=== PATIENT | female | born 1995 | race Caucasian/White ===

== ENCOUNTER 2022-11-26 08:00 | Outpatient (CLI) | payer OTHER ==
[2022-11-26 16:27] LABS: BILIRUBIN,URINE NEGATIVE (NEGATIVE); GLUCOSE, URINE (UA) NEGATIVE (NEGATIVE); KETONES,URINE (UA) NEGATIVE (NEGATIVE); LEUKOCYTE ESTERASE, URINE SMALL (NEGATIVE); NITRITE,URINE NEGATIVE (NEGATIVE); OCCULT BLOOD,URINE NEGATIVE (NEGATIVE); PH,URINE 6.5 PH (5.0-7.5); PROTEIN,URINE NEGATIVE (NEGATIVE); UROBILINOGEN,URINE 0.2 (NORMAL) E.U./dL (NORMAL)
[2022-11-26 16:43] LABS: CLARITY,URINE CLEAR (CLEAR)
[2022-11-26 16:44] LABS: BACTERIA,URINE Moderate /HPF (None Seen); RBC,URINE None Seen /HPF (0-5); SQUAMOUS EPITHELIAL CELL,UR MOD Squamous (<= Few)
== END 2022-11-26 23:59 | disposition home or self-care (01) ==
LOC: LAB.WC 08:00
PROVIDERS: ATTEND Obstetrics & Gynecology
DX: Z34.80 Encounter for supervision of other normal pregnancy, unspecified trimester (principal)
CPT/HCPCS: 81001; 87086

== ENCOUNTER 2022-12-28 08:34 | Outpatient (CLI) | payer OTHER ==
[2022-12-28 10:14] LABS: HCT - HEMATOCRIT 39.9 % (37.0-47.0); HGB - HEMOGLOBIN 13.5 g/dL (12.0-16.0); MEAN CORPUSCULAR HEMOGLOBIN 29.8 pg (27.0-31.0); MEAN CORPUSCULAR HGB CONC 33.8 g/dL (32.0-36.0); MEAN CORPUSCULAR VOLUME 88.1 fL (81.0-99.0); MEAN PLATELET VOLUME 9.1 fL (7.9-10.8); RED BLOOD COUNT 4.53 10^6/uL (4.20-5.40); RED CELL DISTRIBUTION WIDTH 11.9 % (12.0-15.0); WHITE BLOOD COUNT 6.7 x10^3/uL (4.8-10.8)
--- NOTE | 2022-12-28 17:17 | Ultrasound Report ---
PROCEDURE: OB First Trimester w/TV INDICATIONS: POSITIVE TEST OUTSIDE/PRIOR DATING DATA: Last menstrual period (LMP): 10/16/2022. LMP-based estimated date of delivery (DIANA): 07/23/2023. First dating scan (date and location): 12/28/2022, Shayna Metz. Estimated date of delivery (DIANA) from first dating scan: 08/19/2023. TECHNIQUE: Real-time scanning was performed of the fetus and maternal pelvic organs, with image documentation. Endovaginal scanning was also performed to better visualize the fetus and maternal ovaries. COMPARISON: None. FINDINGS: Intrauterine gestational sac present. Embryo: There is a 1.27 cm gestational sac which correlates with a gestational age by mean gestationa l sac diameter of 6 weeks, 1 day. A probable pole is visualized which measures 6 m in length fo r a gestational age of 6 weeks, 4 days. Heart rate: heart rate detected. Other: No perigestational fluid collection. Measurement variability in dating: +/- 4 weeks by LMP, +/- 7 days by mean sac diameter (use before 6 weeks gestation if crown-rump length not able to be measured), +/- 5 days by crown-rump length (6-12 weeks gestation). Maternal organs: Ovaries appear within normal limits. There is a left corpus luteal cyst. IMPRESSION: 1. Probable pole visualized with a calculated gestational age of 6 weeks 4 days which correspon ds with the mean gestational sac diameter of 6 weeks, 1 day. Findings suggest early dates, although i ntrauterine demise cannot be excluded. Close clinical and sonographic surveillance recommended. Reviewed by: Marcia Patrick MD on 12/28/2022 5:16 PM PDT Approved by: Marcia Patrick MD on 12/28/2022 5:16 PM PDT Station ID: [id number]
== END 2022-12-28 08:35 | disposition home or self-care (01) ==
LOC: DI 08:34
PROVIDERS: ATTEND Obstetrics & Gynecology
DX: O46.8X1 Other antepartum hemorrhage, first trimester (principal); Z3A.01 Less than 8 weeks gestation of pregnancy
CPT/HCPCS: 36415; 84702; 85027; 86850; 86900; 86901

== ENCOUNTER 2022-12-29 08:00 | Outpatient (CLI) | payer OTHER ==
[2022-12-29 20:22] LABS: CHLAMYDIA TRACHOMATIS DNA NEGATIVE (NEGATIVE); NEISSERIA GONORRHOEAE DNA NEGATIVE (NEGATIVE); TRICHOMONAS VAGINALIS DNA NEGATIVE (NEGATIVE)
== END 2022-12-29 23:59 | disposition home or self-care (01) ==
LOC: LAB.WC 08:00
PROVIDERS: ATTEND Nurse Practitioner
DX: Z11.3 Encounter for screening for infections with a predominantly sexual mode of transmission (principal)
CPT/HCPCS: 87491; 87591; 87661

== ENCOUNTER 2023-01-01 10:29 | Outpatient (CLI) | payer OTHER | END 2023-01-01 10:30 | disposition home or self-care (01) | LOC: LAB 10:29 | PROVIDERS: ATTEND Nurse Practitioner | DX: O46.8X1 Other antepartum hemorrhage, first trimester (principal) | CPT/HCPCS: 36415; 84702; 86850 ==

== ENCOUNTER 2023-01-14 09:36 | Outpatient (CLI) | payer OTHER | END 2023-01-14 09:37 | disposition home or self-care (01) | LOC: LAB 09:36 | PROVIDERS: ATTEND Nurse Practitioner | DX: O46.8X1 Other antepartum hemorrhage, first trimester (principal) | CPT/HCPCS: 36415; 84702 ==

== ENCOUNTER 2023-06-04 10:24 | Outpatient (CLI) | payer OTHER, MEDICAID | END 2023-06-04 10:25 | disposition home or self-care (01) | LOC: LAB 10:24 | PROVIDERS: ATTEND Nurse Practitioner | DX: Z32.01 Encounter for pregnancy test, result positive (principal) | CPT/HCPCS: 36415; 84702 ==

== ENCOUNTER 2023-06-07 10:17 | Outpatient (CLI) | payer OTHER, MEDICAID | END 2023-06-07 10:18 | disposition home or self-care (01) | LOC: LAB 10:17 | PROVIDERS: ATTEND Nurse Practitioner | DX: Z32.01 Encounter for pregnancy test, result positive (principal) | CPT/HCPCS: 36415; 84702 ==

== ENCOUNTER 2023-07-25 08:00 | Outpatient (CLI) | payer OTHER, MEDICAID ==
[2023-07-25 16:38] LABS: BILIRUBIN,URINE NEGATIVE (NEGATIVE); GLUCOSE, URINE (UA) NEGATIVE (NEGATIVE); KETONES,URINE (UA) NEGATIVE (NEGATIVE); LEUKOCYTE ESTERASE, URINE TRACE (NEGATIVE); NITRITE,URINE NEGATIVE (NEGATIVE); OCCULT BLOOD,URINE NEGATIVE (NEGATIVE); PH,URINE 6.5 PH (5.0-7.5); PROTEIN,URINE NEGATIVE (NEGATIVE); UROBILINOGEN,URINE 0.2 (NORMAL) E.U./dL (NORMAL)
[2023-07-25 17:07] LABS: BACTERIA,URINE Many /HPF (None Seen); CLARITY,URINE HAZY (CLEAR); RBC,URINE None Seen /HPF (0-5); SQUAMOUS EPITHELIAL CELL,UR MANY Squamous (<= Few)
== END 2023-07-25 23:59 | disposition home or self-care (01) ==
LOC: LAB.WC 08:00
PROVIDERS: ATTEND Obstetrics & Gynecology
DX: Z34.90 Encounter for supervision of normal pregnancy, unspecified, unspecified trimester (principal)
CPT/HCPCS: 81001; 87086

== ENCOUNTER 2023-08-04 10:58 | Outpatient (CLI) | payer OTHER, MEDICAID ==
--- NOTE | 2023-08-04 12:10 | Ultrasound Report ---
PROCEDURE: OB 1st Trimester INDICATIONS: POSITIVE TEST OUTSIDE/PRIOR DATING DATA: Last menstrual period (LMP): 06/09/2023. LMP-based estimated date of delivery (DIANA): 03/15/2024. First dating scan (date and location): 08/04/2023. Estimated date of delivery (DIANA) from first dating scan: 03/16/2024. TECHNIQUE: Real-time scanning was performed of the fetus and maternal pelvic organs, with image documentation. COMPARISON: None. FINDINGS: Intrauterine gestational sac present. Embryo: Present, measuring 1.5 cm, corresponding to 7 weeks 6 days. Heart rate: 162 bpm. Other: No perigestational fluid collection. Measurement variability in dating: +/- 4 weeks by LMP, +/- 7 days by mean sac diameter (use before 6 weeks gestation if crown-rump length not able to be measured), +/- 5 days by crown-rump length (6-12 weeks gestation). Maternal organs: Ovaries demonstrate a right-sided corpus luteum. IMPRESSION: Single living intrauterine at 7 weeks 6 days, DIANA of 03/16/2024. Reviewed by: Dean Bazan MD on 08/04/2023 12:08 PM PDT Approved by: Dean Bazan MD on 08/04/2023 12:08 PM PDT Station ID: [id number]
== END 2023-08-04 10:59 | disposition home or self-care (01) ==
LOC: DI 10:58
PROVIDERS: ATTEND Obstetrics & Gynecology
DX: Z34.91 Encounter for supervision of normal pregnancy, unspecified, first trimester (principal)

== ENCOUNTER 2023-11-01 16:36 | Outpatient (CLI) | payer OTHER, MEDICAID ==
--- NOTE | 2023-11-02 09:04 | Ultrasound Report ---
PROCEDURE: OB Anatomy Scan INDICATIONS: ARTERIAL FIBROMUSCULAR DYSPLASIA, HYPOTHYRODISM OUTSIDE/PRIOR DATING DATA: Last menstrual period (LMP): 06/09/2023. LMP-based estimated date of delivery (DIANA): 03/15/2024. First dating scan (date and location): 08/04/2023. Estimated date of delivery (DIANA) from first dating scan: 03/16/2024. The below data below was generated using the ultrasound DIANA of 03/16/2024 TECHNIQUE: Real-time scanning was performed of the fetus, with image documentation and biometric measurements. Endovaginal scanning: Not performed. COMPARISON: 08/04/2023 FINDINGS: General: A single living intrauterine gestation is present. Presentation: Variable Placenta: Placental position is anterior, without previa. Amniotic fluid index: 12.1 cm, 23.4 percentile for gestational age. heart rate: 147 beats per minute. Maternal cervical canal: 4.17 cm long; normal length is 2.5 cm or more. biometrics: Biparietal diameter: 4.8 cm, 20 weeks 4 days, 46.9 percentile Head circumference: 18.44 cm, 20 weeks 6 days, 51.9 percentile Abdominal circumference: 16.06 cm, 21 weeks 1 day, 63.6 percentile Femur length: 3.39 cm, 20 weeks 5 days, 44.0 percentile Estimated gestational age from initial scan: 20 weeks 4 days Composite gestational age from present scan: 21 weeks 0 days Estimated weight and percentile: 384.9 g, 63.6 percentile Measurement variability in biometric dating: +/- 10 days from 12-20 weeks gestation, +/- 2 weeks from 20-30 weeks gestation, +/- 3 weeks at 30 weeks gestation or later. Anatomic survey: Neuro: Ventricles are normal at less than 10 mm. Cisterna magna is normal at 3-11 mm. Cerebellum i s normal in size and morphology. Nuchal skin fold: Normal at less than 6 mm between 14 and 20 weeks gestational age. Face: Not well visualized due to positioning. Spine: No evidence for spina bifida. Heart: 4-chambered heart is present, with normal ventricular outflow tracts. Diaphragm: Diaphragm is intact. Stomach: Left-sided stomach is present. Kidneys: Not well visualized due to positioning. Cord: 3 vessel cord has orthotopic insertion. Bladder: Normal in size. Extremities: All 4 extremities are visualized. IMPRESSION: Single living intrauterine at 20 weeks 4 days, DIANA of 03/16/2024. Estimated weight of 384.9 g, 63.6 percentile. Face and kidneys not well visualized. Short-term follow-up should be considered. Otherwise, normal fe cricket anatomy survey. Reviewed by: Dean Bazan MD on 11/02/2023 9:03 AM PDT Approved by: Dean Bazan MD on 11/02/2023 9:03 AM PDT Station ID: [id number]
== END 2023-11-01 16:37 | disposition home or self-care (01) ==
LOC: DI 16:36
PROVIDERS: ATTEND Obstetrics & Gynecology
DX: Z34.92 Encounter for supervision of normal pregnancy, unspecified, second trimester (principal)

== ENCOUNTER 2023-11-14 17:10 | Outpatient (CLI) | payer OTHER, MEDICAID ==
--- NOTE | 2023-11-15 16:59 | Ultrasound Report ---
PROCEDURE: OB Follow up INDICATIONS: SUPERVISION OF NORMAL , COMPLETE FAS OUTSIDE/PRIOR DATING DATA: Last menstrual period (LMP): 06/09/2023. LMP-based estimated date of delivery (DIANA): 03/15/2024. First dating scan (date and location): 08/04/2023. Estimated date of delivery (DIANA) from first dating scan: 03/16/2024. The below data below was generated using the ultrasound DIANA of 03/16/2024 TECHNIQUE: Real-time scanning was performed of the fetus, with image documentation. Endovaginal scanning: Not performed. COMPARISON: OB ultrasound 11/01/2023 FINDINGS: General: A single living intrauterine gestation is present. Presentation: Vertex Placenta: Placental position is anterior, without previa. Amniotic fluid index: 17.4 cm, within normal limits for gestational age. Largest pocket 5.7 cm heart rate: 148 beats per minute. Estimated gestational age from initial scan: 22 weeks 3 days Other: Facial profile is within normal limits. Orbits are unremarkable. Nose and lips are within norm al limits. Kidneys are within normal limits. No pelviectasis. Maternal right ovary measures 2.4 cm. IMPRESSION: 1. Ivey living intrauterine at 22 weeks 3 days based on prior ultrasound. 2. Normal placenta and amniotic fluid. 3. profile, orbits, nose and lips and kidneys appear normal. Reviewed by: Gibran Rosa MD on 11/15/2023 4:58 PM PDT Approved by: Gibran Rosa MD on 11/15/2023 4:58 PM PDT Station ID: [id number]
== END 2023-11-14 17:11 | disposition home or self-care (01) ==
LOC: DI 17:10
PROVIDERS: ATTEND Obstetrics & Gynecology
DX: Z34.82 Encounter for supervision of other normal pregnancy, second trimester (principal)

== ENCOUNTER 2023-12-23 09:35 | Outpatient (CLI) | payer OTHER, MEDICAID ==
[2023-12-23 10:59] LABS: HCT - HEMATOCRIT 36.2 % (37.0-47.0); MEAN CORPUSCULAR HEMOGLOBIN 30.2 pg (27.0-31.0); MEAN CORPUSCULAR HGB CONC 33.1 g/dL (32.0-36.0); MEAN PLATELET VOLUME 9.9 fL (7.9-10.8); RED BLOOD COUNT 3.98 10^6/uL (4.20-5.40); RED CELL DISTRIBUTION WIDTH 12.5 % (12.0-15.0); WHITE BLOOD COUNT 9.4 x10^3/uL (4.8-10.8)
[2023-12-24 09:09] LABS: RPR Non Reactive (Non Reactive)
== END 2023-12-23 09:36 | disposition home or self-care (01) ==
LOC: LAB 09:35
PROVIDERS: ATTEND Obstetrics & Gynecology
DX: Z34.80 Encounter for supervision of other normal pregnancy, unspecified trimester (principal)
CPT/HCPCS: 36415; 82950; 85027; 86592

== ENCOUNTER 2024-03-08 05:32 | Inpatient (IN) ==
[2024-03-08] MEDS: LACTATED RINGERS 1,000 ML IV SCH ×2 (06:30→09:56)
[2024-03-08 06:33] LABS: BASOPHILS % (AUTO) 0.4 %; EOSINOPHILS # (AUTO) 0.1 10^3/uL (0.0-0.7); EOSINOPHILS % (AUTO) 1.2 %; HCT - HEMATOCRIT 35.5 % (37.0-47.0); HGB - HEMOGLOBIN 11.8 g/dL (12.0-16.0); LYMPHOCYTES # (AUTO) 2.2 10^3/uL (1.5-3.5); LYMPHOCYTES % (AUTO) 22.6 %; MEAN CORPUSCULAR HEMOGLOBIN 29.6 pg (27.0-31.0); MEAN CORPUSCULAR HGB CONC 33.2 g/dL (32.0-36.0); MEAN PLATELET VOLUME 11.6 fL (7.9-10.8); MONOCYTES # (AUTO) 0.7 10^3/uL (0.0-1.0); MONOCYTES % (AUTO) 7.1 %; NEUTROPHILS # (AUTO) 6.4 10^3/uL (1.5-6.6); NEUTROPHILS % (AUTO) 67.3 %; PLT - PLATELET COUNT 214 10^3/uL (130-450); RED BLOOD COUNT 3.99 10^6/uL (4.20-5.40); RED CELL DISTRIBUTION WIDTH 12.9 % (12.0-15.0); WHITE BLOOD COUNT 9.5 x10^3/uL (4.8-10.8)
[2024-03-08] MEDS ORDERED: PHENYLEPHRINE 10 MG/ML VIAL ONE (07:09)
[2024-03-08] MEDS: ACETAMINOPHEN 500 MG TABLET PO ONE (07:12)
[2024-03-08] MEDS: CITRIC ACID/SODIUM CITRATE 15 ML UDC PO ONE (07:13)
--- NOTE | 2024-03-08 07:15 | ANESTHESIA PROCEDURE NOTE ---
Pre-Anesthesia VS, & Labs Diagnosis Surgical Diagnosis:: repeat c/s Procedure Procedure: c/s Vitals Vital Signs: Temp Resp 36.7 C 16 03/08/24 06:36 03/08/24 06:36 Height (in): 5 ft 8 in Weight (kg): 87.543 kg Body Mass Index: 29.3 BMI Classification: Overweight NPO NPO: >8 hours Is Patient ?: Yes Estimated Due Date:: 03/08/24 Lab Results Current Lab Results: Laboratory Tests 03/08/24 06:30: WBC 9.5, RBC 3.99 L, Hgb 11.8 L, Hct 35.5 L, MCV 89.0, MCH 29.6, MCHC 33.2, RDW 12.9, Plt Count 214, MPV 11.6 H, Neut # (Auto) 6.4, Lymph # (Auto) 2.2, Divide # (Auto) 0.7, Eos # (Auto) 0.1, Baso # (Auto) 0.0, Absolute Nucleated RBC 0.00, Nucleated RBC % 0.0 Lab results reviewed: Yes 03/08/24 06:30 Meds/Allgy Home Medications Ambulatory Orders Medication Instructions Recorded Confirmed aspirin 81 mg tablet,delayed 81 mg PO QDAY 01/06/24 02/24/24 release (Adult Aspirin Regimen) omeprazole 20 mg capsule,delayed 20 mg PO QDAY 01/06/24 02/24/24 release vit no.133-ferrous tab PO 01/06/24 02/24/24 fumarate 28 mg-folic acid 800 mcg tablet () sertraline 100 mg tablet (Zoloft) 100 mg PO QDAY 01/06/24 02/24/24 Allergies Allergies Allergy/AdvReac Type Severity Reaction Status Date / Time No Known Drug Allergies Allergy Verified 02/16/24 09:51 [facility] Surgical History Surgical History H/O: 10/03/2021 Family History Family History (Updated 01/06/24 @ 11:39 by Suzi Galicia MA) Paternal grandfather Diabetes Mother Depressed Father Depressed Aunt Depressed Maternal grandmother Breast cancer Brother Seizures Social History Social History Smoking Status: Never smoker Do you dip or chew tobacco?: No Anesthesia Exam (Expanded) Exam General: Alert and No acute distress Dental: WNL Mouth Openin Fingerbreadth Neck Mobility: Normal Mallampati classification: II Thyromental Distance: 4-6 cm Respiratory: Lungs clear Cardiovascular: Regular rate Plan Plan Anesthesia Type: Spinal and Transverse Abdominis Plane (TAP) Block Consent for Procedure(s) Verified and Reviewed: Yes Code Status: Attempt Resuscitation ASA Classification ASA classification: 2-Mild systemic disease Is this case an emergency?: No
[2024-03-08] MEDS ORDERED: ATROPINE ABBOJECT 1 MG/10 ML SYRINGE IVP PRN (07:17)
[2024-03-08] MEDS ORDERED: METOCLOPRAMIDE 10 MG/2 ML VIAL IVP PRN (07:17)
[2024-03-08] MEDS ORDERED: HYDROmorphone 0.5 MG/0.5 ML SYRINGE IVP PRN (07:17)
[2024-03-08] MEDS ORDERED: MORPHINE 2 MG/ML CARPUJECT IVP PRN (07:17)
[2024-03-08] MEDS ORDERED: NALOXONE 0.4 MG/ML VIAL IVP PRN ×2 (07:17→09:16)
[2024-03-08] MEDS ORDERED: ONDANSETRON 4 MG/2 ML VIAL IVP PRN (07:17)
[2024-03-08] MEDS ORDERED: ePHEDrine 50 MG/ML VIAL IVP PRN (07:17)
[2024-03-08] MEDS ORDERED: fentaNYL 100 MCG/2 ML VIAL IVP PRN (07:17)
--- NOTE | 2024-03-08 07:17 | HISTORY & PHYSICAL EXAMINATION ---
Admit History Smoking Status: Never smoker Other Maternal History Other Maternal History: HPI: Moon is a 28 yo at 39w0d who is admitted for scheduled delivery. She is feeling well today. Reports rare contractions. No LOF, VB. + FM. monitoring form, copied from record: Previous low-transverse section. LMP: 06/09/2023 DIANA by LMP: 03/15/2024 Initial US Date 08/04/2023, US Age 7 weeks 6 days, DIANA by ultrasound: 03/16/2024 Final DIANA: 03/15/2024 by LMP consistent with 7-week ultrasound Problems: - Previous section, induced at 37 weeks and only got to 5 cm - desires rCS - Older son, Elan, a cleft lip - , Ruben, a carrier of SMA, Moon completed carrier screening (negative) baby boy Pre- Weight:186.8 BMI:28.51 Blood type: A+ Antibody: Negative CBC:H/H 12.6/36.3 plt 251 RUB:immune VZV:Immune HBsAg: Negative HepC:NR RPR/AB-EIA: NR HIV: NR PAP:08/19/2023-NILM GC/CT:Negative HSV: denies in self and partner Genetic testing: NIPT- Negative AFP- ordered 09/14 Covid: 12/22 Flu: 2022, 12/23/23 RSV- 02/15 FAS: 11/01/2023 Placenta: Anterior Cord: 3vc FELIZ: 12.1CM EFW: 384.9G; 63.6%tile 50gm OGCT:83 3HR GTT: TDAP: 12/22 Breast Pump: declines, has pump RPR: 12/22 Negative Antibody screen: 3rd trimester H/H 36.2/12.0 PLT 218 3rd trimester HIV GBS: 02/16/2024- Negaive Delivery plan: MOD: desires rCS, declines sterilization. Contraception: PILL, getting vasectomy. No LARC PE: Vitals signs reviewed in [facility] Gen: NAD CV: RRR Resp: non labored respirations Chest: non labored respirations Abd: gravid, non tender. Ext: no LE edema NST: reactive Labs: reviewed A/P: 28 yo with history of delivery. Plan to proceed with repeat delivery. We reviewed risks of delivery including pain, bleeding (possibly requiring blood transfusion or as a life-saving measure hysterectomy), infection, damage to nearby structures including bowel/bladder, longer recovery time , increased risk for DVT, risk of /injury to mom or baby. Consent was signed. Nawaf Christopher MD HPI Current : Current EDU 03/08/24 Para 1 Vital Signs Temperature 98.1 F 03/08/24 06:36 Respiratory Rate 16 03/08/24 06:36 Temperature 98.1 F 03/08/24 06:36 Respiratory Rate 16 03/08/24 06:36 NST Procedure NST Procedure: NST Procedure Start Date 03/08/24 Start Time 05:46 Stop Time 06:09 Vibroacoustic Stimulation Used No Patient States Movement Yes Meds/Allgy Home Medications Ambulatory Orders Medication Instructions Recorded Confirmed aspirin 81 mg tablet,delayed 81 mg PO QDAY 01/06/24 02/24/24 release (Adult Aspirin Regimen) omeprazole 20 mg capsule,delayed 20 mg PO QDAY 01/06/24 02/24/24 release vit no.133-ferrous tab PO 01/06/24 02/24/24 fumarate 28 mg-folic acid 800 mcg tablet () sertraline 100 mg tablet (Zoloft) 100 mg PO QDAY 01/06/24 02/24/24 Allergies Allergies Allergy/AdvReac Type Severity Reaction Status Date / Time No Known Drug Allergies Allergy Verified 02/16/24 09:51 [facility] Surgical History Surgical History H/O: 10/03/2021 Family History Family History (Updated 01/06/24 @ 11:39 by Suzi Galicia MA) Paternal grandfather Diabetes Mother Depressed Father Depressed Aunt Depressed Maternal grandmother Breast cancer Brother Seizures Social History Social History Smoking Status: Never smoker Do you dip or chew tobacco?: No Physical Abdominal Exam Vital Signs: Temp Resp 98.1 F 16 03/08/24 06:36 03/08/24 06:36 Plan for Labor Plan For Labor I expect patient to be DC'd or transferred within 96 hours.: Yes Conclusion/Plan Lab Results Lab results reviewed: Yes 03/08/24 06:30
[2024-03-08] MEDS ORDERED: ePHEDrine 50 MG/ML VIAL IVP ONE (07:26)
[2024-03-08] MEDS ORDERED: OXYTOCIN/SODIUM CHLORIDE 500 ML IV ONE (07:28)
[2024-03-08] MEDS ORDERED: OXYTOCIN 10 UNIT/ML VIAL ONE (07:28)
[2024-03-08] MEDS: ACETAMINOPHEN 500 MG TABLET PO SCH (07:30)
[2024-03-08] MEDS ORDERED: ONDANSETRON 4 MG/2 ML VIAL ONE (08:01)
[2024-03-08] MEDS ORDERED: MIDAZOLAM 2 MG/2 ML VIAL ONE (08:32)
[2024-03-08] MEDS ORDERED: ROPIVACAINE 0.5% PF 20 ML VIAL ONE (08:54)
[2024-03-08] MEDS ORDERED: SODIUM CHLORIDE 0.9% 10 ML VIAL IVP ONE (08:54)
[2024-03-08] MEDS ORDERED: PROPOFOL 200 MG/20 ML VIAL IVP ONE (08:55)
[2024-03-08] MEDS ORDERED: KETOROLAC 30 MG/ML VIAL ONE (09:11)
[2024-03-08] MEDS ORDERED: DEXAMETHASONE 4 MG/ML VIAL ONE (09:15)
[2024-03-08] MEDS ORDERED: OXYTOCIN/SODIUM CHLORIDE 500 ML IV PRN (09:16)
[2024-03-08] MEDS ORDERED: HYDROCORTISONE 1% CREAM 28 GM TUBE TOP PRN (09:16)
[2024-03-08] MEDS ORDERED: WITCH HAZEL/GLYCERIN 1 PAD TOP PRN (09:16)
[2024-03-08] MEDS ORDERED: oxyCODONE 5 MG TABLET PO PRN (09:16)
[2024-03-08] MEDS ORDERED: MAGNESIUM HYDROXIDE 2,400 MG/30 ML UDC PO PRN (09:16)
[2024-03-08] MEDS ORDERED: NIFEdipine 10 MG CAPSULE PO PRN (09:16)
[2024-03-08] MEDS ORDERED: SIMETHICONE CHEW 80 MG TABLET PO PRN (09:16)
[2024-03-08] MEDS ORDERED: LABETALOL 20 MG/4 ML SYRINGE IVP PRN ×3 (09:16)
[2024-03-08] MEDS ORDERED: hydrALAZINE INJ 20 MG/ML VIAL IVP PRN ×2 (09:16)
--- NOTE | 2024-03-08 09:22 | OPERATIVE REPORT ---
Operative Report General Admit Date: 03/08/24 Procedure Data: Operation Date: 03/08/24 07:30 Proposed Procedures p REPEAT Section(Not Applicable) - Nawaf Christopher MD Actual Procedures p REPEAT Section(Not Applicable) - Nawaf Christopher MD Pre-Op Diagnosis: HISTORY OF SECTION Anesthesia Type Spinal Case Staff Anesthesia Provider: Luke Lane Assisting Provider: Chela Crystal Case Times Procedure Start: 03/08/24 08:27 Time out: 03/08/24 08:23 Other Other Information/Narrative: DATE OF PROCEDURE: 03/08/24 Surgeon: Nawaf Christopher MD Head Of Sales Promotion: Chela Crystal CNM, TRUDI Crystal was necessary as an gynecological assistant for the entire procedure for adequate retraction and visualization, to shorten operative time, to assist with delivery of the infant, and to lower the risk of surgical injury. Pre-Op Diagnosis: History of delivery Post-Op Diagnosis: Same Procedures: Repeat low transverse delivery Findings: - Mild adhesions between fascia and rectus muscles, mild vesicouterine adhesions - Uterus, tubes, ovaries otherwise normal in appearance - infant in cephalic LOT presentation, copious clear amniotic fluid Specimens: none Anesthesia Technique: spinal Estimated Blood Loss: 400cc Blood Replacement: none Fluid Replacement: 1 L Drains: salgado, 80cc clear yellow urine Complications: none Condition: stable Procedure in Detail: The patient was taken to the operating room where spinal anesthesia was placed. Salgado catheter was placed. She was prepared and draped in the normal sterile fashion in the dorsal supine position with a leftward tilt. 2g Ancef was given for prophylaxis. A Pfannenstiel skin incision was made with the scalpel at location of prior incision and carried down through the subcutaneous tissue in the midline. The remainder of the subcutaneous tissue was then bluntly and with cautery. The fascia was incised in the midline and the incision was extended with Mayos. The superior aspect of the fascial incision was grasped with two Mohit clamps, elevated, and the underlying rectus muscles dissected off both bluntly and with the aid of the Mayos. Attention was turned to the inferior aspect of the fascial incision, which in a similar fashion, was grasped with two Mohit clamps, elevated, and the underlying rectus muscles dissected off both bluntly and with the aid of the Mayos. The peritoneum was entered bluntly. The peritoneal incision was extended superiorly and inferiorly with good visualization of the bladder bluntly and with cautery. The bladder blade was inserted. The bladder reflection was identified and a bladder flap was created sharply with metzenbaum scissors. The lower uterine segment was incised in a transverse fashion with the scalpel. The uterine incision was extended bluntly. The bladder blade was removed and the infants head was brought to the hysterotomy. Fundal pressure applied and the delivered atraumatically. The cord was clamped and cut after 60 sec and the was handed off to the waiting provider. The placenta was removed with gentle uterine massage and cord traction. The uterus was exteriorized and cleared of all clots and debris with moist laparotomy sponges. The uterine incision was repaired with 0 Vicryl in a running fashion. A second layer of 0 monocryl was used in an imbricating fashion. Hemostasis noted. The posterior cul-de-sac was cleared of all clots and debris with moist laparotomy sponges, and the uterus was returned to the abdomen. The gutters were cleared of all clots. Excellent hemostasis of the hystertomy was again noted. The rectus muscles were carefully examined and hemostatic. The fascia was reapproximated with 0-Vicryl in a running fashion. The subcutaneous tissues was irrigated. The subcutaneous tissue was reapproximated with 2-0 Vicryl, and the skin was closed with 4-0 monocryl. The patient tolerated the procedure well. Sponge, lap, needle, and instrument counts were correct at the end of the procedure. The patient was taken to the recovery room in stable. Nawaf Christopher MD
[2024-03-08] MEDS: ceFAZolin (2G) 2 GM in SODIUM CHLORIDE 0.9% MINIBAG 100 ML IV ONE (10:26)
--- NOTE | 2024-03-08 13:21 | PHARMACY PROGRESS NOTE ---
Best Possible Medication History Admit Date and Time: 03/08/24 [id number] Home Medications Medication Instructions Recorded Confirmed Type omeprazole 20 mg capsule,delayed 20 mg PO QPM 01/06/24 03/08/24 History release vit no.133-ferrous 1 tab PO DAILY PM 01/06/24 03/08/24 History fumarate 28 mg-folic acid 800 mcg tablet () sertraline 100 mg tablet (Zoloft) 100 mg PO QDAY 01/06/24 03/08/24 History Processed by: Pharmacy (Medication reconciliation completed by i&c technicianAudra) Medications reviewed in ED?: No Medication History completed: Yes Patient Interview: Completed Secondary Source(s): Insurance records [employer] Statement: As the person ultimately responsible for medication therapy, providers are able to order a medication from an existing home medication list in [facility] via the "Reconcile Routine" prior to Confirmation of that medication by logistics support. Such practice is discouraged except when the physician, in their clinical judgment, deems that a medical need exists for a medication without regard to previous use.
[2024-03-08] MEDS: KETOROLAC 30 MG/ML VIAL IVP SCH (15:05)
[2024-03-08] MEDS: SERTRALINE 50 MG TABLET PO SCH (21:37)
[2024-03-08] MEDS: DOCUSATE SODIUM 100 MG CAPSULE PO SCH (21:38)
[2024-03-09 05:45] LABS: HGB - HEMOGLOBIN 9.9 g/dL (12.0-16.0); MEAN CORPUSCULAR HEMOGLOBIN 28.9 pg (27.0-31.0); MEAN CORPUSCULAR HGB CONC 31.9 g/dL (32.0-36.0); MEAN CORPUSCULAR VOLUME 90.6 fL (81.0-99.0); MEAN PLATELET VOLUME 11.2 fL (7.9-10.8); RED BLOOD COUNT 3.42 10^6/uL (4.20-5.40); RED CELL DISTRIBUTION WIDTH 13.2 % (12.0-15.0); WHITE BLOOD COUNT 11.4 x10^3/uL (4.8-10.8)
[2024-03-09] MEDS: IBUPROFEN 600 MG TABLET PO SCH (09:50)
--- NOTE | 2024-03-09 16:18 | PROVIDER PROGRESS NOTE ---
Subjective Prog Note Date Prog Note Date: 03/09/24 Prog Note Time: 16:11 Subjective Pt reports feeling: Improved Subjective: POD #1 s/p repeat : She is feeling well overall and reports minimal to no pain. She is tolerating a regular diet, ambulating, voiding, and passing flatus. She is formula-feeding without concerns and is bonding well with her . Current Medications Current Medications Current Medications: Current Medications Generic Name Dose Route Start Last Admin Trade Name Angelina PRN Reason Stop Dose Admin Acetaminophen 1,000 mg 03/08/24 10:00 03/09/24 15:54 Acetaminophen 500 Mg Tablet PO 1,000 mg Q8H LEEANNA Administration Docusate Sodium 200 mg 03/08/24 21:00 03/09/24 08:28 Docusate Sodium 100 Mg Capsule PO 200 mg BID LEEANNA Administration Hydralazine HCl 10 mg 03/08/24 09:16 Hydralazine Inj 20 Mg/Ml Vial IVP .ONCE PRN SBP> or= 160 OR DBP> or= 110 Protocol Hydralazine HCl 5 - 20 mg 03/08/24 09:16 Hydralazine Inj 20 Mg/Ml Vial IVP Q20M PRN SBP> or= 160 OR DBP> or= 110 Protocol Hydrocortisone 1 applic 03/08/24 09:16 Hydrocortisone 1% Cream 28 Gm Tube TOP QID PRN Hemorrhoids Lactated Ringer's 1,000 mls @ 125 mls/hr 03/08/24 06:00 03/08/24 11:02 Lr IV 125 mls/hr .Q8H LEEANNA Administration Oxytocin/Sodium Chloride 500 mls @ 999 mls/hr 03/08/24 09:16 Pitocin/Sodium Chloride IV PRN PRN POST- HEMORR PREVENTION Protocol 999 MILLIUNIT/MIN Ibuprofen 600 mg 03/09/24 10:00 03/09/24 15:56 Ibuprofen 600 Mg Tablet PO 600 mg Q6HR LEEANNA Administration Labetalol HCl 20 - 40 mg 03/08/24 09:16 Labetalol 20 Mg/4 Ml Syringe IVP Q10M PRN SBP> or= 160 OR DBP> or= 110 Protocol Labetalol HCl 20 mg 03/08/24 09:16 Labetalol 20 Mg/4 Ml Syringe IVP .ONCE PRN SBP> or= 160 OR DBP> or= 110 Protocol Labetalol HCl 20 - 80 mg 03/08/24 09:16 Labetalol 20 Mg/4 Ml Syringe IVP Q10M PRN SBP> or= 160 OR DBP> or= 110 Protocol Magnesium Hydroxide 2,400 mg 03/08/24 09:16 Magnesium Hydroxide 2,400 Mg/30 Ml Udc PO Q8HR PRN Constipation Naloxone HCl 0.4 mg 03/08/24 09:16 Naloxone 0.4 Mg/Ml Vial IVP .ONCE PRN Opioid overdose Nifedipine 10 - 20 mg 03/08/24 09:16 Nifedipine 10 Mg Capsule PO Q20M PRN SBP> or= 160 OR DBP> or= 110 Protocol Oxycodone HCl 5 - 10 mg 03/08/24 09:16 Oxycodone 5 Mg Tablet PO Q4HR PRN Severe Pain 6 -10 Pantoprazole Sodium 40 mg 03/09/24 07:00 Pantoprazole 40 Mg Tablet PO QDAC LEEANNA Sertraline HCl 100 mg 03/08/24 20:00 03/08/24 21:37 Sertraline 50 Mg Tablet PO 100 mg DAILY LEEANNA Administration Simethicone 80 mg 03/08/24 09:16 Simethicone Chew 80 Mg Tablet PO TID PRN Gas Witch Leeann/Glycerin 1 pad 03/08/24 09:16 Witch Leeann/Glycerin 1 Pad TOP PRN PRN Itching Objective Vital Signs/Intake & Output Reviewed Vital Signs: Yes Vital Signs: Vital Signs x48h Temp Pulse Resp BP Pulse Ox 03/09/24 13:16 36.8 C 87 18 120/74 99 03/09/24 09:00 36.8 C 98 H 20 123/74 96 Intake & Output: Intake & Output 03/06/24 03/07/24 03/08/24 03/09/24 23:59 23:59 23:59 23:59 Intake Total 1367 / 1367 400 / 400 Output Total 2099 / 2099 Balance -733 / -733 399 / 399 Weight (kg) 87.543 kg Objective General Appearance: positive No acute distress and Alert Eyes Bilateral: positive Normal inspection Neck: positive Nml inspection Respiratory: positive Breath sounds nml Cardiovascular: positive Regular rate & rhythm and No murmur Abdomen: positive Other (Fundus firm at Umb; appropriately ttp; bowel sounds rare) Skin: positive Color nml Extremities: positive Non-tender, Full ROM and Nml appearance Neurologic/Psychiatric: positive Oriented x3 and Mood/affect nml Lab Results 03/09/24 05:25 Other Labs: Lab Results x24hrs 03/09/24 Range/Units 05:25 WBC 11.4 H (4.8-10.8) x10^3/uL RBC 3.42 L (4.20-5.40) 10^6/uL Hgb 9.9 L (12.0-16.0) g/dL Hct 31.0 L (37.0-47.0) % MCV 90.6 (81.0-99.0) fL MCH 28.9 (27.0-31.0) pg MCHC 31.9 L (32.0-36.0) g/dL RDW 13.2 (12.0-15.0) % Plt Count 174 (130-450) 10^3/uL MPV 11.2 H (7.9-10.8) fL Assessment/Plan Problem List (1) care following delivery: Impression: POD #1 s/p uncomplicated repeat . Doing well. - Blood type A pos, Rubella/Varicella immune - Planning pill and vasectomy for contraception - Cont routine postoperative care and support. - Cont Tylenol/Motrin for pain with oxycodone prn for breakthrough. - Encouraged ambulation. - Anticipate discharge home tomorrow morning.
[2024-03-10] MEDS: PANTOPRAZOLE 40 MG TABLET PO SCH (05:43)
[2024-03-10 08:51] VITALS: BP 132/87; TEMP 97.9; O2SAT 99
--- NOTE | 2024-03-10 10:31 | Discharge Summary ---
"Discharge Summary Admit Date: 03/08/24 Discharge Date: 03/10/24 Discharging Provider: Dr. Rose Mary Davila Primary Care Provider: Dr. Nawaf Christopher Code Status: Attempt Resuscitation Discharge Facility Name: [facility] DIAGNOSES Admission Diagnoses: 1. Prior , requesting repeat 2. at 39 wks gestation Discharge Diagnoses with Status of Each Condition: Same, now s/p delivery HPI History of Present Illness: Patient is a 28 yo admitted at 39+0 wks for scheduled repeat . She denies contractions, leakage of fluid, or vagina bleeding. CONSULTS | PROCEDURES Consultations: None Procedures: Repeat low-transverse delivery HOSPITAL COURSE Hospital Course: After an uncomplicated repeat , the patient did well. Routine postop/ care was conducted. Postop pain was controlled with Motrin/Tylenol. Vital signs were normal and stable. She was discharged home on POD #2 ambulating, tolerating a regular diet, voiding, passing flatus, and controlling pain with oral meds. Lochia was decreasing appropriately, and she was bonding well with the infant. She was formula-feeding per patient desire. ALLERGIES Allergies Allergy/AdvReac Type Severity Reaction Status Date / Time No Known Drug Allergies Allergy Verified 02/16/24 09:51 MEDICATIONS Ambulatory Orders Medication Instructions Recorded Confirmed omeprazole 20 mg capsule,delayed 20 mg PO QPM 01/06/24 03/08/24 release vit no.133-ferrous 1 tab PO DAILY PM 01/06/24 03/08/24 fumarate 28 mg-folic acid 800 mcg tablet () sertraline 100 mg tablet (Zoloft) 100 mg PO QDAY 01/06/24 03/08/24 acetaminophen 500 mg tablet 1,000 mg (2 x 500 mg) PO Q8H #60 03/10/24 tabs docusate sodium 100 mg capsule 200 mg (2 x 100 mg) PO BID #60 caps 03/10/24 ibuprofen 600 mg tablet 600 mg PO Q6HR #60 tabs 03/10/24 naloxone 0.4 mg/mL injection 0.4 mg IV push (test dose) .ONCE 03/10/24 solution PRN Opioid overdose #10 mL norethindrone acetate 1.5 1 tab PO DAILY #112 tabs 03/10/24 mg-ethinyl estradiol 30 mcg tablet (Loestrin) oxycodone 5 mg tablet 5 - 10 mg (1 - 2 x 5 mg) PO Q4HR 03/10/24 PRN Severe Pain 6 -10 #10 tabs sertraline 50 mg tablet 100 mg (2 x 50 mg) PO DAILY #60 03/10/24 tabs PHYSICAL EXAM AT DISCHARGE General Appearance: positive No acute distress and Alert Eyes Bilateral: positive Normal inspection Neck: positive Nml inspection Respiratory: positive No respiratory distress and Breath sounds nml Cardiovascular: positive Regular rate & rhythm and No murmur Abdomen: positive Nml bowel sounds and Other (Uterine fundus at U-1, appropriately tender) Skin: positive Other (Bruising noted at umbilicus 2 x 2 cm; no mass or hematoma palpable; pt reports having similar finding with last ) Extremities: positive Non-tender, Full ROM and Nml appearance Neurologic/Psychiatric: positive Oriented x3, Motor nml and Mood/affect nml LABS 03/09/24 05:25 SEPSIS Confirmed Source and Organism (if known) of Sepsis: N/A QUALITY (Female Hip Fx Only) Was patient sent home on osteoporosis medication?: No FOLLOW UP Follow Up: 10-14 days for incision check TIME SPENT Time Spent in Discharge (Minutes): 25 Discharge Plan Discharge Patient Disposition: NURSING HOME, Self Care Condition: Good Medically Cleared Date:: 03/10/24 Prescriptions: New naloxone 0.4 mg/mL Solution 0.4 mg IV push (test dose) .ONCE PRN (Reason: Opioid overdose) Qty: 10 0RF docusate sodium 100 mg Capsule 200 mg PO BID Qty: 60 0RF oxycodone 5 mg Tablet 5 - 10 mg PO Q4HR PRN (Reason: Severe Pain 6 -10) Qty: 10 0RF norethindrone ac-eth estradiol [Loestrin 1.5/30 (21)] 1.5-30 mg-mcg tablet 1 tab PO DAILY Qty: 112 3RF Rx Instructions: Start at 4 wks acetaminophen 500 mg Tablet 1,000 mg PO Q8H Qty: 60 0RF ibuprofen 600 mg Tablet 600 mg PO Q6HR Qty: 60 0RF sertraline 50 mg Tablet 100 mg PO DAILY Qty: 60 0RF Continued omeprazole 20 mg capsule,delayed release(DR/EC) 20 mg PO QPM sertraline [Zoloft] 100 mg tablet 100 mg PO QDAY 28-800 mg-mcg tablet 1 tab PO DAILY PM Activity Restrictions: Additional Comments Activity Restrictions/Additional Instructions: No driving until pain-free off narcotic medications; pelvic rest x 6 wks; no heavy lifting or strenuous exercise x 6 wks Diet: Regular Print Language: Danish Patient Instructions: Follow-up Care: Nawaf Chrisotpher MD [Provider Admit Priv/Credential] - (Please call clinic to schedule postop visit in 10-14 days)"
== END 2024-03-10 11:27 | disposition home or self-care (01) | DRG 788 ==
LOC: FBP 05:32
PROVIDERS: ADMIT Obstetrics & Gynecology; ATTEND Obstetrics & Gynecology
DX: O34.211 Maternal care for low transverse scar from previous cesarean delivery; Z3A.39 39 weeks gestation of pregnancy; Z37.0 Single live birth